=== PATIENT | male | born 1995 ===

== ENCOUNTER 2017-05-25 02:37 | Emergency (ER) | payer OTHER ==
[2017-05-25 02:47] VITALS: BP 135/81; PULSE 92; RESP 18; TEMP 98.2; O2SAT 96
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
== END 2017-05-25 06:09 | disposition home or self-care (01) ==
LOC: H.ER 02:37
DX: S93.601A Unspecified sprain of right foot, initial encounter (principal); S93.401A Sprain of unspecified ligament of right ankle, initial encounter; S83.91XA Sprain of unspecified site of right knee, initial encounter; S13.4XXA Sprain of ligaments of cervical spine, initial encounter; V49.10XA Passenger injured in collision with unspecified motor vehicles in nontraffic accident, initial encounter; Y93.9 Activity, unspecified

== ENCOUNTER 2017-06-02 06:43 | Observation (INO) | payer OTHER ==
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
[2017-06-02 07:45] LABS: BASO % 0.9 % (0.0-2.0); EOS # 0.4 K/uL (0.0-0.7); EOS % 7.4 % (0.0-4.0); HEMOGLOBIN 14.1 g/dL (12.0-18.0); LYMPH # 1.9 K/uL (1.0-4.3); LYMPH % 35.5 % (20.0-40.0); MEAN CELL VOLUME 80.3 fl (80.0-94.0); MEAN CORPUSCULAR HEMOGLOBIN 26.1 pg (27.0-31.0); MEAN CORPUSCULAR HGB CONC 32.5 g/dL (33.0-37.0); MEAN PLATELET VOLUME 11.3 fl (7.2-11.7); MONO # 0.7 K/uL (0.0-0.8); MONO % 13.7 % (0.0-10.0); NEUT # 2.2 K/uL (1.8-7.0); NEUT % 42.5 % (50.0-75.0); NRBC % 0.1 % (0.0-0.0); RBC 5.42 Mil/uL (4.40-5.90); RED CELL DISTRIBUTION WIDTH 14.2 % (11.5-14.5); WHITE BLOOD COUNT 5.2 K/uL (4.8-10.8)
[2017-06-02 08:00] LABS: PARTIAL THROMBOPLASTIN TIME 31.3 Seconds (25.6-37.1); PROTHROMBIN TIME 11.6 Seconds (9.8-13.1)
[2017-06-02] MEDS ORDERED: Bupivacaine 0.5% Inj(30mL) ONE (09:12)
[2017-06-02] MEDS ORDERED: methylPREDNISolone Depo 80 mg/ml Inj ONE (09:12)
[2017-06-02] MEDS ORDERED: Lidocaine 1% Inj (20ml) ONE (09:12)
[2017-06-02] MEDS ORDERED: Ropivacaine 0.5% 30ML IV ONE (09:56)
[2017-06-02] MEDS ORDERED: Propofol 10 mg/ml Inj (20 ML) ONE (10:01)
[2017-06-02] MEDS ORDERED: Midazolam 2 MG/2 ML VIAL ONE (10:02)
[2017-06-02] MEDS ORDERED: Succinylcholine 200 mg/10 ml Inj IV ONE (10:02)
[2017-06-02 10:22] LABS: ALB/GLOB RATIO 1.4 (1.0-2.1); ALBUMIN 4.2 g/dL (3.5-5.0); ALT/SGPT 39 U/L (21-72); AST/SGOT 27 U/L (17-59); BLOOD UREA NITROGEN 21 mg/dl (9-20); CALCIUM 9.6 mg/dL (8.4-10.2); GFR AFRICAN-AMERICAN > 60; GFR NON-AFRICAN AMERICAN > 60
[2017-06-02] MEDS ORDERED: Lidocaine 1% Inj (20ml) IJ ONE (11:23)
[2017-06-02] MEDS ORDERED: Lactated Ringer's 1,000 ML IV ONE ×4 (11:24→17:00)
[2017-06-02] MEDS ORDERED: Desflurane Inhalation Anesthetic Liq (240 ml) ONE (12:13)
[2017-06-02] MEDS ORDERED: Rocuronium 10 mg/ml (5 ml) ONE (12:49)
[2017-06-02] MEDS ORDERED: Neostigmine Methylsulfate 3mg/3ml Syringe IV ONE (13:04)
[2017-06-02] MEDS ORDERED: Neostigmine Methylsulfate 2 MG/2 ML ML IV ONE (13:04)
[2017-06-02] MEDS ORDERED: Bacitracin Ointment 30 GM TUBE ONE (13:18)
[2017-06-02] MEDS ORDERED: Bacitracin OINT 15GM TOP ONE (13:25)
[2017-06-02] MEDS: HYDROmorphone 0.5 mg/0.5 ml ISec IVP PRN ×2 (13:55→14:05)
--- NOTE | 2017-06-02 14:39 | PCM.ANESB3 ---
Femoral Nerve Block - Femoral Nerve Block Date of Procedure: 06/02/17 Anesthesiologist: Soham Etienne MD Pre-Procedure Diagnosis: Anterior Cruciate Ligament Tear Lefy Knee Post-Procedure Diagnosis: same Procedure Performed: Femoral Nerve Block Left - Procedure Femoral Nerve Block: The procedure was explained to the patient that it is for the post-operative pain management. Consent was obtained after a thorough discussion with the patient regarding the benefits and possible complications of local anesthetic block of the femoral nerve at the inguinal crease area. The patient was brought to the operating room and standard monitors were applied. Time-out was held with the circulating nurse to confirm the correct surgery and the appropriate block. After induction of general endotracheal anesthesia, patient was placed in supine position with fully extended lower extremities and the _Left groin exposed. The femoral artery was then carefully palpated. The ultrasound transducer was then applied to this area in the transverse plane and the femoral nerve was visualized lateral to the femoral artery and underneath the fascia iliaca. After thorough identification, the inguinal crease area was prepped with Chloroprep solution three times and 1 % Lidocaine was injected subcutaneously for topical anesthesia. At this point, a #22 gauge Stimuplex 2-inch needle was inserted immediately lateral to the femoral artery pulse at the inguinal crease and advanced perpendicularly. The needle was inserted to the ultrasound transducer in-plane towards the femoral nerve in a [id number] direction. Needle advancement was performed carefully under direct ultrasound visualization. Nerve stimulator was used and twitch of the quadriceps muscle was obtained at current of _0.2____ MA. After negative aspiration, __15___cc of _0.5____% _Ropivacaine (5 cc increments)_. Under ultrasound guidance the local anesthetics were observed spreading below fascia iliaca and around the femoral nerve. The needle was removed intact and sterile dressing was applied. The patient had stable vital signs, was conscious and in no apparent distress. The patient tolerated the femoral nerve block well with stable vital signs and was prepared for subsequent surgery.
--- NOTE | 2017-06-02 14:42 | PCM.ANESB2 ---
Popliteal Nerve Block - Popliteal Nerve Block Date of Procedure: 06/02/17 Anesthesiologist: Soham Etienne MD Pre-Procedure Diagnosis: Anterior Cruciate Ligament Tear Left Knee Post-Procedure Diagnosis: Same Procedure Performed: Popliteal Nerve Block Left - Procedure Popliteal Nerve Block: This procedure was explained to the patient that it is for post-operative pain management. Consent was obtained after a thorough discussion with the patient regarding the benefits and possible complications of local anesthetic block of the sciatic nerve at the popliteal level. The patient was brought to the operating room and standard monitors are applied. Time-out was held with the circulating nurse to confirm the correct surgery and the appropriate block. After general anesthesia, patient's operative leg was gently raised and supported and the groove in between the biceps femoris and vastus lateralis muscles was carefully palpated. The skin approximately 8cm above the popliteal crease was then marked. The ultrasound transducer was then applied to the posterior thigh approximately 8cm above the popliteal crease in the transverse plane and the sciatic nerve before its division was visualized lateral to the popliteal artery and in between the bicep femoris and semimembranosus/ semitendinosus muscles. After identification, the lateral portion of the thigh was prepped with Chloroprep solution three times and Lidocaine 1% was injected subcutaneously for topical anesthesia. At this point, a # 21 gauge Stimuplex insulated 4 inch needle was inserted into pre-marked area and advanced in a perpendicular direction. The needle was inserted above the ultrasound transducer in-plane towards the sciatic nerve in a [id number] direction. Needle advancement was performed carefully under direct ultrasound visualization. Nerve stimulator was used and dorsiflexion of the __Left___ foot was elicited at a current of _0.2____ MA. After repeated negative aspiration, __15___cc of _0.5____ % _Ropivacaine ( 5 cc increment) was injected. Under ultrasound guidance the local anesthetics were observed tenting the epidural sheath and surrounding the roots of the sciatic nerve. The needle was removed intact and sterile dressing was applied. The patient tolerated the popliteal nerve block well with stable vital signs and was subsequently prepared for the surgery.
[2017-06-02 15:19] VITALS: RESP 20
[2017-06-02 16:56] VITALS: TEMP 98.1
[2017-06-02 17:02] VITALS: BP 127/74; PULSE 87; O2SAT 98
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
--- NOTE | 2017-06-03 12:02 | RAD ---
PROCEDURE: Left Knee Radiographs. HISTORY: Pain.Relevant surgical history: Status postleft arthroscopy with ACL repair. COMPARISON: None. FINDINGS: BONES: Normal. No fracture. JOINTS: Normal. No osteoarthritis. JOINT EFFUSION: Air and air-fluid levels identified within the joint space related to recent arthroscopy. OTHER FINDINGS: None. IMPRESSION: Satisfactory postoperative status.
--- NOTE | 2017-06-04 18:32 | CARD ---
APPROVED REPORT EKG Measurement Heart [id number] <Conclusion> Normal sinus rhythm with sinus arrhythmia Early repolarization Normal ECG
== END 2017-06-02 19:30 | disposition home or self-care (01) ==
LOC: H.ER 06:43 → H.ERHOLD 07:35
PROVIDERS: ADMIT Orthopaedic Surgery; ATTEND Orthopaedic Surgery
DX: M23.201 Derangement of unspecified lateral meniscus due to old tear or injury, left knee (principal); S83.512A Sprain of anterior cruciate ligament of left knee, initial encounter; M23.204 Derangement of unspecified medial meniscus due to old tear or injury, left knee; M65.862 Other synovitis and tenosynovitis, left lower leg; V49.9XXA Car occupant (driver) (passenger) injured in unspecified traffic accident, initial encounter; Y93.9 Activity, unspecified; Y92.410 Unspecified street and highway as the place of occurrence of the external cause